=== PATIENT | female | born 1975 | race Caucasian/White ===

== ENCOUNTER 2022-11-09 07:41 | Inpatient (IN) | payer OTHER ==
[2022-11-09] MEDS ORDERED: Glycopyrrolate 0.2 MG/ML 5 ML MDV ONE (07:45)
[2022-11-09] MEDS ORDERED: Ondansetron 4 MG/2 ML SDV ONE (07:45)
[2022-11-09] MEDS ORDERED: Midazolam 1 MG/ML 2 ML SDV ONE (07:45)
[2022-11-09] MEDS ORDERED: Propofol 200 MG/20 ML SDV ONE (07:45)
[2022-11-09] MEDS ORDERED: Rocuronium 50 MG/5 ML Vial ONE ×2 (07:45→10:46)
[2022-11-09] MEDS ORDERED: Dexamethasone 4 MG/ML SDV ONE (07:45)
[2022-11-09] MEDS ORDERED: fentaNYL 250 MCG/5 ML SDV ONE (07:45)
[2022-11-09] MEDS ORDERED: Neostigmine Methylsulfate 1 MG/ML 5 ML Syringe ONE (07:45)
[2022-11-09] MEDS ORDERED: Scopolamine 1.5 MG Transdermal Patch TOP SCH (08:00)
[2022-11-09] MEDS ORDERED: Dextrose 5%-Lactated Ringers 1,000 ML IV SCH (08:30)
[2022-11-09] MEDS ORDERED: Heparin Sodium 5,000 Units/ML Vial ONE (08:48)
[2022-11-09] MEDS ORDERED: Lidocaine 1% with EPINEPHrine 1:100,000 50 ML MDV ONE (08:49)
[2022-11-09] MEDS ORDERED: Bupivacaine 0.5% 50 ML MDV ONE (08:49)
[2022-11-09] MEDS ORDERED: cefOXitin 2 GM in Sodium Chloride 0.9% 50 ML IV ONE (09:15)
[2022-11-09] MEDS ORDERED: Ketamine 500 MG/5 ML MDV IV SCH (09:30)
[2022-11-09] MEDS ORDERED: Ketamine 17 MG in Sodium Chloride 0.9% 19.83 ML IV SCH (09:30)
[2022-11-09] MEDS ORDERED: Naloxone 0.4 MG/ML SDV IVPUSH PRN (10:00)
[2022-11-09] MEDS ORDERED: Phenylephrine 1% 10 MG/ML SDV ONE (10:59)
[2022-11-09] MEDS ORDERED: Sodium Chloride 0.9% 20 ML ONE (11:00)
[2022-11-09] MEDS: Meropenem 500 MG SDV ONE ×2 (11:03→11:45)
[2022-11-09] MEDS ORDERED: Linezolid 600 MG/300 ML Premix Bag IRR ONE ×2 (11:04→11:45)
[2022-11-09] MEDS ORDERED: Lactated Ringers 1,000 ML ONE (11:20)
[2022-11-09] MEDS ORDERED: Heparin Sodium 5,000 UNITS in Sodium Chloride 0.9% 500 ML IV SCH (13:00)
[2022-11-09] MEDS ORDERED: fentaNYL 100 MCG/2 ML SDV ONE (13:10)
[2022-11-09] MEDS ORDERED: diphenhydrAMINE 50 MG/ML SDV IVPUSH PRN ×2 (15:00)
[2022-11-09] MEDS ORDERED: hydrOXYzine HCl 50 MG/ML SDV IM PRN (15:00)
[2022-11-09] MEDS ORDERED: Ondansetron 4 MG/2 ML SDV IVPUSH PRN (15:00)
[2022-11-09] MEDS ORDERED: Naloxone 0.4 MG/ML SDV IV PRN (15:00)
[2022-11-09] MEDS: Dextrose 5%-Lactated Ringers 1,000 ML IV SCH ×2 (15:44→22:11)
[2022-11-09] MEDS: fentaNYL 2,500 MCG in Sodium Chloride 0.9% 200 ML EPIDUR SCH (15:45)
[2022-11-09] MEDS: ceFAZolin 2 GM in Premix Bag 1 BAG IV SCH (15:57)
[2022-11-10] MEDS: ceFAZolin 2 GM in Premix Bag 1 BAG IV SCH ×3 (00:44→15:29)
[2022-11-10] MEDS: fentaNYL 2,500 MCG in Sodium Chloride 0.9% 200 ML EPIDUR SCH ×2 (01:26→20:12)
[2022-11-10] MEDS: Dextrose 5%-Lactated Ringers 1,000 ML IV SCH (04:21)
[2022-11-10 05:02] LABS: ESTIMATED GFR 92 mL/min (>60)
[2022-11-10] MEDS ORDERED: Meperidine PF 100 MG/ML Syringe IM ONE (07:30)
[2022-11-10] MEDS ORDERED: Acetaminophen 500 MG Tab PO SCH (08:00)
[2022-11-10] MEDS: Acetaminophen 1,000 MG in Premix Bag 1 BAG IV SCH ×3 (08:29→19:41)
[2022-11-10] MEDS: SCOPOLAMINE PATCH CHECK TOP SCH (08:34)
[2022-11-10] MEDS: Docusate Sodium 100 MG Cap PO SCH ×2 (08:35→21:10)
[2022-11-10] MEDS: Magnesium Sulfate/Water 2 GM/50 ML BAG IV SCH ×3 (10:04→21:11)
[2022-11-10] MEDS: Naloxone 0.4 MG in Dextrose 5%-Lactated Ringers 1,000 ML IV SCH ×2 (10:23→21:14)
[2022-11-11] MEDS: ceFAZolin 2 GM in Premix Bag 1 BAG IV SCH ×3 (00:19→15:44)
[2022-11-11] MEDS: Acetaminophen 1,000 MG in Premix Bag 1 BAG IV SCH ×4 (03:57→22:00)
[2022-11-11] MEDS: Magnesium Sulfate/Water 2 GM/50 ML BAG IV SCH ×4 (04:54→22:39)
[2022-11-11] MEDS: Naloxone 0.4 MG in Dextrose 5%-Lactated Ringers 1,000 ML IV SCH ×2 (07:37→18:15)
[2022-11-11] MEDS: SCOPOLAMINE PATCH CHECK TOP SCH (08:18)
[2022-11-11] MEDS: Docusate Sodium 100 MG Cap PO SCH ×2 (08:35→19:59)
[2022-11-11] MEDS: Bisacodyl 5 MG Tab PO SCH ×2 (08:35→19:59)
[2022-11-11] MEDS: fentaNYL 2,500 MCG in Sodium Chloride 0.9% 200 ML EPIDUR SCH (15:05)
[2022-11-12] MEDS: ceFAZolin 2 GM in Premix Bag 1 BAG IV SCH ×3 (00:46→15:20)
[2022-11-12] MEDS: Magnesium Sulfate/Water 2 GM/50 ML BAG IV SCH ×4 (04:33→21:48)
[2022-11-12] MEDS: Naloxone 0.4 MG in Dextrose 5%-Lactated Ringers 1,000 ML IV SCH ×2 (04:35→15:19)
[2022-11-12] MEDS: Acetaminophen 1,000 MG in Premix Bag 1 BAG IV SCH (06:37)
[2022-11-12] MEDS: Bisacodyl 5 MG Tab PO SCH ×2 (09:01→20:59)
[2022-11-12] MEDS: Docusate Sodium 100 MG Cap PO SCH ×2 (09:01→20:59)
[2022-11-12] MEDS: fentaNYL 2,500 MCG in Sodium Chloride 0.9% 200 ML EPIDUR SCH (12:07)
[2022-11-13] MEDS: ceFAZolin 2 GM in Premix Bag 1 BAG IV SCH ×4 (00:04→23:01)
[2022-11-13] MEDS: Magnesium Sulfate/Water 2 GM/50 ML BAG IV SCH (04:06)
[2022-11-13] MEDS: Naloxone 0.4 MG in Dextrose 5%-Lactated Ringers 1,000 ML IV SCH (04:07)
[2022-11-13] MEDS ORDERED: Cyclobenzaprine 10 MG Tab PO PRN (07:09)
[2022-11-13] MEDS: Docusate Sodium 100 MG Cap PO SCH ×2 (08:12→21:34)
[2022-11-13] MEDS: Bisacodyl 5 MG Tab PO SCH ×2 (08:12→21:34)
[2022-11-13] MEDS: HYDROmorphone 2 MG Tab PO PRN ×3 (09:32→22:58)
[2022-11-13] MEDS: Dextrose 5%-Lactated Ringers 1,000 ML IV SCH ×2 (09:33→19:52)
[2022-11-13] MEDS: Acetaminophen 500 MG Tab PO SCH ×3 (09:33→19:24)
[2022-11-13] MEDS: Celecoxib 200 MG Cap PO SCH ×2 (09:33→21:34)
[2022-11-13] MEDS: traMADol 50 MG Tab PO PRN ×2 (12:42→19:24)
[2022-11-14] MEDS: Acetaminophen 500 MG Tab PO SCH ×4 (02:00→20:30)
[2022-11-14] MEDS: Dextrose 5%-Lactated Ringers 1,000 ML IV SCH (06:21)
[2022-11-14] MEDS: traMADol 50 MG Tab PO PRN ×3 (06:33→20:31)
[2022-11-14] MEDS: ceFAZolin 2 GM in Premix Bag 1 BAG IV SCH ×3 (07:38→23:54)
[2022-11-14] MEDS: Docusate Sodium 100 MG Cap PO SCH ×2 (08:25→20:30)
[2022-11-14] MEDS: Celecoxib 200 MG Cap PO SCH ×2 (08:25→20:30)
[2022-11-14] MEDS: Bisacodyl 5 MG Tab PO SCH ×2 (08:25→20:32)
[2022-11-14] MEDS: HYDROmorphone 2 MG Tab PO PRN ×2 (10:55→17:46)
[2022-11-15] MEDS: Acetaminophen 500 MG Tab PO SCH ×4 (02:57→21:03)
[2022-11-15] MEDS: HYDROmorphone 2 MG Tab PO PRN ×2 (03:00→15:22)
[2022-11-15] MEDS ORDERED: Bisacodyl 5 MG Tab PO PRN (06:49)
[2022-11-15] MEDS ORDERED: Nystatin Susp 100,000 Unit/ML 60 ML Bottle PO SCH (08:00)
[2022-11-15] MEDS: Celecoxib 200 MG Cap PO SCH ×2 (08:23→21:03)
[2022-11-15] MEDS: Docusate Sodium 100 MG Cap PO SCH ×2 (08:23→21:03)
[2022-11-15] MEDS: Nystatin Susp 100,000 Unit/ML 5 ML UD Cup PO SCH ×3 (09:22→21:05)
[2022-11-15] MEDS: traMADol 50 MG Tab PO PRN ×3 (11:44→22:57)
[2022-11-16] MEDS: Acetaminophen 500 MG Tab PO SCH ×2 (02:31→08:09)
[2022-11-16] MEDS: Nystatin Susp 100,000 Unit/ML 5 ML UD Cup PO SCH ×2 (05:37→09:11)
[2022-11-16] MEDS: traMADol 50 MG Tab PO PRN (05:37)
[2022-11-16] MEDS: Docusate Sodium 100 MG Cap PO SCH (08:12)
[2022-11-16] MEDS: Celecoxib 200 MG Cap PO SCH (08:12)
== END 2022-11-16 13:31 | disposition home or self-care (01) | DRG 327 ==
LOC: JP.SDS 07:41 → JP.ICU 14:15
PROVIDERS: ADMIT Surgery; ATTEND Surgery
PROC: 0DBU0ZZ Excision of Omentum, Open Approach (ICD-10-PCS; principal; 2022-11-09)
PROC: 0BQT0ZZ Repair Diaphragm, Open Approach (ICD-10-PCS; 2022-11-09)
PROC: 0BBP0ZZ Excision of Left Pleura, Open Approach (ICD-10-PCS; 2022-11-09)
PROC: 0BBT0ZZ Excision of Diaphragm, Open Approach (ICD-10-PCS; 2022-11-09)
PROC: 0FB20ZX Excision of Left Lobe Liver, Open Approach, Diagnostic (ICD-10-PCS; 2022-11-09)
PROC: 3E0M05Z Introduction of Adhesion Barrier into Peritoneal Cavity, Open Approach (ICD-10-PCS; 2022-11-09)
DX: K44.0 Diaphragmatic hernia with obstruction, without gangrene (principal); J90 Pleural effusion, not elsewhere classified; K46.0 Unspecified abdominal hernia with obstruction, without gangrene; K63.4 Enteroptosis; Z79.899 Other long term (current) drug therapy
CPT/HCPCS: 36415; 71045; 71045-26; 80053; 81025; 82803; 83735; 84100; 85027; 86850; 86900; 86901; 86920; 86922; 88302; 88305; 88307; 93005; 97110-GP; 97163-GP; 97530-GP; 97535-GP; A9270-GY; C1713; J0131; J0690; J0694; J1100; J1644; J2020; J2175; J2185; J2250; J2310; J2370; J2405; J2704; J2710; J3010; J3410; J3475; J3490; J7040; J7050; J7120; J7121